=== PATIENT | female | born 1980 | race Caucasian/White ===

== ENCOUNTER 2017-12-16 10:36 | Day surgery (SDC) | payer OTHER ==
[2017-12-16 11:11] VITALS: BMI 24.9
[2017-12-16 11:35] VITALS: BP 112/66; TEMP 98
--- NOTE | 2017-12-16 20:25 | SS ---
DATE OF EVALUATION: 12/16/2017 EVALUATING PHYSICIAN: Bruno Gaviria M.D. REGULAR OB PHYSICIANS: Dr. Susan Fernandes D.O., Niraj Snell M.D. CHIEF COMPLAINT: Concern regarding blood pressure, nosebleed last night. HISTORY OF PRESENT ILLNESS: Ms. Vincent is a 37-year-old , AB 2 with an estimate d date of confinement of 02/12/2018, per her report, who presents to triage today with multiple negro rns. She states that last night, she had a nosebleed which is now stopped and she also believes that she has had elevated blood pressure at home. Her obstetrical care this apparently started with Dr. Susan Fernandes and due to an insuran ce change, she is supposed to see Dr. Niraj Snell early next month. She also has been evaluated for her high risk status at [facility]. PAST OBSTETRICAL HISTORY: One vaginal delivery at term, one at 34 weeks. A 16-week DIU an d an early loss. She states that she has antiphospholipid antibody syndrome and reports that she is currently on a baby aspirin and Lovenox. PAST MEDICAL HISTORY: Antiphospholipid antibody syndrome. CURRENT MEDICATIONS: Lovenox 40 mg daily, aspirin 81 mg daily, and a vitamin. PAST SURGICAL HISTORY: at 34 weeks as above. ALLERGIES: No reported allergies. SOCIAL HISTORY: She denies tobacco, alcohol, or illicit drug use. REVIEW OF SYSTEMS: Nosebleeds as above. She denies nausea, vomiting, fever or chills right upper qu adrant pain, vaginal bleeding or ruptured membranes. PHYSICAL EXAMINATION: VITAL SIGNS: Blood pressure in triage 105/60, pulse is 80. She is afebrile. HEENT: There is no bleeding from the nose seen. GENERAL: She is alert and oriented, but concerned. ABDOMEN: Her abdomen is soft, nontender and gravid. There is no guarding or rebound. PELVIC: Pelvic examination is deferred. heart rate tracing shows good beat to beat variability and sporadic accelerations. No decelera tions are seen. No contractions are seen. Due to patient concern, a bedside ultrasound was done and there is active movement and adequate fluid throughout all 4 quadrants. ASSESSMENT: 1. A 31 and 5/7 weeks high risk . 2. Antiphospholipid antibody. 3. Recent nosebleed, now resolved. 4. Reassuring heart rate tracing and KAYLA. PLAN: The patient will be dismissed from triage at this time. She was given complete precautions. She was told the importance of calling Dr. Snell's and trying to move her appointment up as well as keeping her regular appointment with [facility] [place].
== END 2017-12-16 11:55 | disposition home or self-care (01) ==
LOC: L&D/OP 10:36
PROVIDERS: ATTEND Obstetrics & Gynecology
DX: Z03.89 Encounter for observation for other suspected diseases and conditions ruled out (principal); O09.523 Supervision of elderly multigravida, third trimester; O99.113 Other diseases of the blood and blood-forming organs and certain disorders involving the immune mechanism complicating pregnancy, third trimester; D68.61 Antiphospholipid syndrome; Z3A.31 31 weeks gestation of pregnancy; Z79.01 Long term (current) use of anticoagulants; Z79.82 Long term (current) use of aspirin; Z79.899 Other long term (current) drug therapy; Z98.891 History of uterine scar from previous surgery
CPT/HCPCS: 76815; 99282